=== PATIENT | male | born 1970 | race Caucasian/White ===

== ENCOUNTER 2018-01-31 22:59 | Inpatient (IN) | payer SELFPAY ==
[2018-01-31 23:00] VITALS: BP 86/64; PULSE 84; RESP 27; TEMP 37.1; O2SAT 97; BMI 29.6
--- NOTE | 2018-01-31 23:02 | ED.RN ---
NO OLD EKGS IN MUSE.
--- NOTE | 2018-01-31 23:16 | EKG12_ITS ---
Test Reason : CP Blood Pressure : / mmHG Vent. Rate : 083 BPM Atrial Rate : 083 BPM P-R Int : 134 ms QRS Dur : 080 ms QT Int : 392 ms P-R-T Axes : -11 068 075 degrees QTc Int : 460 ms Normal sinus rhythm Nonspecific ST and T wave abnormality Prolonged QT Abnormal ECG Confirmed by ABELARDO SOMMERS, KACEY ([id number]), clinical editor GALA GOLDBERG ([id number]) on 02/02/2018 2:17:14 PM Referred By: DR HERBERT Confirmed By:KACEY ZHOU MD
--- NOTE | 2018-01-31 23:20 | RAD_ITS ---
STUDY: X-RAY CHEST REASON FOR EXAM: Male, 47 years old. Chest pain TECHNIQUE: Single AP portable view of the chest. COMPARISON: None. FINDINGS: Normal lung volumes. Right lung is clear. Streaky densities in the left lung base consistent with scarring or atelectasis. No effusions. Sternal cerclage wires and vascular clips are present from a prior sternotomy and coronary artery bypass graft procedure (CABG). Normal heart size. Normal mediastinum and dewayne. Normal visualized pulmonary arteries. Normal visualized aortic arch and descending thoracic aorta. Normal visualized thoracic spine. Normal visualized ribs, clavicles, and shoulders. There is no demonstrated abnormality of the visualized soft tissue structures of the upper abdomen. RAD/Chest 1 View (Portable) IMPRESSION: Streaky densities in the left lung base consistent with scarring or atelectasis. Electronically Signed: Primitivo Thurman MD at 23:38 EDT , Service support ,
[2018-01-31 23:25] LABS: Absolute Lymphocyte Count 1.09 X10^3/ul (0.83-4.51); Absolute Neutrophil Count 11.4 X10^3/uL (2.0-7.7); Basophil# 0.03 X10^3/uL; Basophil% 0.2 % (0-1); Eosinophil# 0.04 X10^3/uL; Eosinophils% 0.3 % (0-5); Hematocrit 30.9 % (40-54); Hemoglobin 10.6 g/dl (13.0-16.5); Lymphocyte # 1.09 X10^3/ul (4.0); Lymphocyte % 8.4 % (19-41); Mean Corp Hgb Conc 34.3 g/gl (32-36); Mean Corpuscular Volume 84.7 fL (80-94); Mean Platelet Vol. 9.2 fl (6.2-12.0); Monocyte# 0.47 X10^3/uL; Monocyte% 3.6 % (0-10); Neutrophil # 11.39 X10^3/uL (2.7-7.7); Neutrophil % 87.3 % (47-70); POSITIVE COUNT NO; POSITIVE DIFFERENTIAL NO; POSITIVE MORPHOLOGY NO; Platelet Count 484 K/mm3 (150-450); RBC Distribution Width CV 13.2 % (11.6-14.6); RBC Distribution Width SD 40.6 fl (35.1-43.9); Red Blood Count 3.65 M/mm3 (4.6-6.2)
[2018-01-31 23:36] LABS: International Normalized Ratio 1.2; Prothrombin Time (Protime)PT. 15.2 SECONDS (11.7-14.9)
[2018-01-31 23:37] LABS: Partial Thromboplast Time 36.4 Seconds (24.1-36.2)
[2018-01-31] MEDS: Aspirin 81 MG TAB.CHEW 243 MG PO (23:38)
[2018-01-31] MEDS: 0.9% Normal Saline 1,000 ML 999 ML IV (23:38)
--- NOTE | 2018-01-31 23:40 | ED.RN ---
PT DECLINED FENTANYL AT THIS TIME
--- NOTE | 2018-01-31 23:50 | ED.VISSUMM ---
- ER Visit Summary Date of Service: 01/31/18 Chief Complaint: Chest pain History of Present Illness: The patient is a 47 M sudden substernal chest tightness after getting out of the shower around 9 PM. States he was laying down when this happened. He had left arm numbness and passed out. Pain was 10 initially. Currently 2 out of 10. No previous similar symptoms. No tobacco history. No family history of MIs at a young age. Denies history of hypertension, hypercholesterol, diabetes. Family states he was admitted at [facility] 2 weeks ago for sepsis. He finished his medicines 9 days ago. Said no clear source. Initial reported that he had a narrow artery from his chest down to his abdomen. Currently pain is a 2 out of 10. He has history aortic valve repair 3 years ago at [facility]. States the cath was then at that time. He is on metoprolol, however denies any A. fib or hypertension history. I was able to obtain records through [facility], noted he was admitted for 4 days for septic shock and concerns for secondary viral illness. He was on Tamiflu on discharge. PE study was performed on 421, aorta was normal. 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 Reported no significant calcification of the coronary arteries. Physical Examination: General: Alert and oriented ?3, no acute distress HEENT: Normocephalic, atraumatic. Moist mucosa membranes Neck: supple, nontender. Cardiovascular: Regular rate and rhythm, no murmurs Respiratory: Normal breath sounds, symmetric, no distress Abdomen: Soft, nontender, nondistended Extremities: Nontender, no edema, pulses intact ?4 Neuro: no focal neurological deficits. Skin: Mild sweats Test Results: EKG: Sinus rate of 83, on no ST or changes. T-wave inversions on V5 and V6. Troponin 0 0.6. Hemoglobin 10.6. Platelets 484. Creatinine clearance 80. Chest x-ray left lower lobe atelectasis. Emergency Department Course and Treatment: Patient initial clammy. EKG with T-wave inversion V5 V6. No elevations or depressions. Cardiac workup initiated. Given a liter fluids due to his hypotension. Responded. Minimal chest discomfort on my evaluation he declined fentanyl. Troponin returned at 0.6. Initial order for heparin due to NSTEMI. 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 I spoke with the transfer line, the states their beds are full from a cardiac standpoint he would be on the waiting list. Family decided that they would like to stay here. I spoke with Dr. Mcgee, updated he states he will cath in the morning. He would like Plavix 300 mg given. He wanted to heparin stopped, check with nursing stated it was not given. Heart score is a 6. Spoke with hospitalist, Dr. Singh for admission to PCU. Treatment Plan: [] Disposition: Admission Impression: NSTEMI This note was generated with QCoefficient dictation software. It may contain incorrect words, spelling, and punctuation that were not noted in review of the chart prior to signing ED Disposition - Plan for ED Patient: Disposition: Acute Care Hospital [facility] Chief Complaint: Chest Pain Diagnosis: NSTEMI (non-ST elevated myocardial infarction) Referrals: Roe Pennington [Primary Care Provider] -
[2018-01-31 23:51] VITALS: BP 95/71; PULSE 86; RESP 24; O2SAT 100
--- NOTE | 2018-01-31 23:54 | ED.DCSUM_ITS ---
- ER Visit Summary Date of Service: 01/31/18 Chief Complaint: Chest pain History of Present Illness: The patient is a 47 M sudden substernal chest tightness after getting out of the shower around 9 PM. States he was laying down when this happened. He had left arm numbness and passed out. Pain was 10 initially. Currently 2 out of 10. No previous similar symptoms. No tobacco history. No family history of MIs at a young age. Denies history of hypertension, hypercholesterol, diabetes. Family states he was admitted at [facility] 2 weeks ago for sepsis. He finished his medicines 9 days ago. Said no clear source. Initial reported that he had a narrow artery from his chest down to his abdomen. Currently pain is a 2 out of 10. He has history aortic valve repair 3 years ago at [facility]. States the cath was then at that time. He is on metoprolol, however denies any A. fib or hypertension history. I was able to obtain records through [facility], noted he was admitted for 4 days for septic shock and concerns for secondary viral illness. He was on Tamiflu on discharge. PE study was performed on 421, aorta was normal. 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 Reported no significant calcification of the coronary arteries. Physical Examination: General: Alert and oriented ?3, no acute distress HEENT: Normocephalic, atraumatic. Moist mucosa membranes Neck: supple, nontender. Cardiovascular: Regular rate and rhythm, no murmurs Respiratory: Normal breath sounds, symmetric, no distress Abdomen: Soft, nontender, nondistended Extremities: Nontender, no edema, pulses intact ?4 Neuro: no focal neurological deficits. Skin: Mild sweats Test Results: EKG: Sinus rate of 83, on no ST or changes. T-wave inversions on V5 and V6. Troponin 0 0.6. Hemoglobin 10.6. Platelets 484. Creatinine clearance 80. Chest x-ray left lower lobe atelectasis. Emergency Department Course and Treatment: Patient initial clammy. EKG with T- wave inversion V5 V6. No elevations or depressions. Cardiac workup initiated. Given a liter fluids due to his hypotension. Responded. Minimal chest discomfort on my evaluation he declined fentanyl. Troponin returned at 0.6. Initial order for heparin due to NSTEMI. 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 I spoke with the transfer line, the states their beds are full from a cardiac standpoint he would be on the waiting list. Family decided that they would like to stay here. I spoke with Dr. Mcgee, updated he states he will cath in the morning. He would like Plavix 300 mg given. He wanted to heparin stopped, check with nursing stated it was not given. Heart score is a 6. Spoke with hospitalist, Dr. Singh for admission to PCU. Treatment Plan: [] Disposition: Admission Impression: NSTEMI This note was generated with AppSame dictation software. It may contain incorrect words, spelling, and punctuation that were not noted in review of the chart prior to signing ED Disposition - Plan for ED Patient: Disposition: Acute Care Hospital [facility] Chief Complaint: Chest Pain Diagnosis: NSTEMI (non-ST elevated myocardial infarction) Referrals: Roe Pennington [Primary Care Provider] -
[2018-01-31 23:58] LABS: Anion Gap 8 (5-15); BUN 20 mg/dL (7-18); BUN/Creat Ratio 16.8 RATIO (10-20); Calcium,Total 8.1 mg/dL (8.5-10.1); Chloride 99 mmol/L (98-107); Creatinine, Serum 1.19 mg/dL (0.70-1.30); EST Glomerular Filtration Rate 69 mL/min (>60); Est Glom Filt Rate - Afr Amer 84 mL/min (>60); Estimated Creatinine Clearance 80.85 ml/min; Glucose 131 mg/dL (74-106); Potassium 3.6 mmol/L (3.5-5.1); Sodium Level 133 mmol/L (136-145)
[2018-02-01] VITALS (19 sets, daily range): BP systolic 80–119; BP diastolic 55–91; PULSE 66–97; RESP 14–28; TEMP 36.9; O2SAT 93–98; BMI 29.0
--- NOTE | 2018-02-01 | ED.RN ---
DR HERBERT NOTIFIED OF TROPONIN RESULTS
[2018-02-01] MEDS: 0.9% Normal Saline 1,000 ML 150 ML IV ×2 (00:25→07:55)
--- NOTE | 2018-02-01 01:15 | PCM.HP.STD ---
Problem List (1) NSTEMI (non-ST elevated myocardial infarction) Status: Acute History of Present Illness Date of Admission: 02/01/18 Chief Complaint: chest pain The patient is a 47 year old male patient with a significant past medical history of aortic valve replacement three years ago and recovering from a hospitalization 10 days ago fro viral sepsis presents to the ER with acute chest pain. This initially presented while he was taking a shower at approximately 9:00 pm. He passed out in the shower briefly but suffered no injury from falling. He then developed 10/10 substernal chest pain. 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 Past Medical History Allergies No Known Allergies Allergy (Verified 01/31/18 23:09) Home Medications: Ambulatory Orders Medication Instructions Recorded Aspirin [Aspirin, Baby] 81 mg PO DAILY 01/31/18 Metoprolol Tartrate 25 mg PO BID 01/31/18 Smoking Status: Never smoker - *Family History Maternal History Items: No pertinent history Review of Systems Constitutional: Denies: Chills, Fever, Weight Change HEENT: Denies: Head Aches, Sinus Congestion, Sinus Drainage Cardiovascular: Reports: Chest Pain, Chest Pressure, Chest Tightness, Heaviness. Denies: Palpitations Respiratory: Denies: Cough, Shortness of breath at rest, Sputum production Gastrointestinal: Denies: Abdominal Pain, Nausea, Vomiting Genitourinary: Denies: Dysuria Musculoskeletal: Denies: Joint Pain, Joint Tenderness Skin: Denies: Rash, Wounds Neurological: Denies: Numbness, Tingling, Focal weakness Psychiatric: Denies: Anxiety, Depression, Homicidal Ideations, Suicidal Ideations Hematologic/ Lymphatic: Denies: Easy Bruising, Easy Bleeding VTE Information - Inpt Only VTE Present on Admission: No VTE Mechan Device Prophylaxis: None VTE Pharm Prophylaxis ordered?: Yes Patient Problems: Active and Suspected Problems NSTEMI (non-ST elevated myocardial infarction) (Acute) - Physical Exam General: Alert, Oriented x3, Cooperative HEENT: Atraumatic, Normocephalic Neck: Supple Lungs: Clear to auscultation, Normal air movement, No rhonchi, No wheeze Cardiovascular: Regular rate, Murmur - 4/6 holosystolic Abdomen: Bowel Sounds Present, Soft, Non Tender Extremities: Capillary Refill Less than 3 Seconds, Edema - trace lower ext edema Skin: No rashes, No breakdown Musculoskeletal: No Tenderness to Palpation of Joints or Extremities Neurological: Neuro grossly intact Psych/Mental Status: Normal Affect, Appropriate Vital Signs Temp Pulse Resp BP Pulse Ox 98.7 F 90 28 H 94/72 97 01/31/18 23:00 02/01/18 00:15 02/01/18 00:15 02/01/18 00:15 02/01/18 00:15 Oxygen Flow Rate (L/min) 2 Oxygen Delivery Method Nasal Cannula Weight: 212 lb 8.41 oz Body Mass Index (BMI) 29.6 Laboratory Tests Past 24 Hrs 01/31/18 01/31/18 01/31/18 23:12 23:12 23:12 WBC 13.0 H RBC 3.65 L Hgb 10.6 L Hct 30.9 L MCV 84.7 MCH 29.0 MCHC 34.3 RDW 13.2 RDW Differential 40.6 Plt Count 484 H MPV 9.2 Immature Gran % (Auto) 0.200 Neut % (Auto) 87.3 H Lymph % (Auto) 8.4 L [place] % (Auto) 3.6 Eos % (Auto) 0.3 Baso % (Auto) 0.2 Absolute Neuts (auto) 11.4 H Absolute Lymphs (auto) 1.09 Total Counted Not Reportable PT 15.2 H INR 1.2 APTT 36.4 H Sodium 133 L Potassium 3.6 Chloride 99 Carbon Dioxide 26.0 Anion Gap 8 BUN 20 H Creatinine 1.19 Estim Creat Clear Calc 80.85 Est GFR (MDRD) Af Amer 84 Est GFR (MDRD) Non-Af 69 BUN/Creatinine Ratio 16.8 Glucose 131 H Calcium 8.1 L Troponin I 0.60 H* Assessment/Plan Active and Suspected Problems NSTEMI (non-ST elevated myocardial infarction) (Acute) Plan - admit to PCU - consult Dr Mcgee - NPO pending heart cath in am - consider echo - cycle cardiac enzymes - morphine, oxygen, nitro and aspirin per protocol Code Visit Inpatient E&M: 80306 Init Hosp L3
[2018-02-01] MEDS: Clopidogrel Bisulfate 300 MG Tablet PO (01:17)
[2018-02-01 04:23] LABS: M R Staph aureus DNA By PCR Negative (Negative); Probe Check PASS; Specimen Processing Control PASS
[2018-02-01] MEDS: 0.9% NaCl Peripheral Flush Adult/Peds IV (05:53)
--- NOTE | 2018-02-01 05:55 | ECHOD_ITS ---
Reason For Study: Chest pain Procedure This was a 2D Doppler, Color Flow transthoracic echocardiogram. Exam performed portable in ICU/CCU. Left Ventricle Normal LV size. Moderate concentric left ventricular hypertrophy. Left ventricular systolic function is normal. The estimated ejection fraction is 60 %. Transmitral diastolic flow velocities suggest mild (stage 1) diastolic dysfunction (reversed pattern). No regional wall motion abnormalities noted. Right Ventricle Normal RV size. Normal systolic function. Atria Normal left atrium. Normal right atrium. Mitral Valve Normal mitral valve. Tricuspid Valve Normal tricuspid valve. 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 Peak aortic valve gradient 139 mmHg. Mean aortic valve gradient 91 mmHg. Severe aortic stenosis. Bioprosthetic aortic valve. Pulmonic Valve Normal pulmonic valve. Great Vessels Normal aortic root. The pulmonary artery is normal size. Normal inferior vena cava. Pericardium/Pleural No pericardial effusion. MMode/2D Measurements & Calculations LVIDd: 3.8 cm IVSd: 1.4 cm LVOT diam: 2.0 cm LVIDs: 1.9 cm LVPWd: 1.6 cm LVOT area: 3.2 cm2 RVDd: 3.5 cm FS: 48.7 % Ao root diam: 3.3 cm LAV(MOD-bp): 62.5 ml LA A4 area: 19.6 cm2 LA dimension: 4.9 cm LAV(MOD-bp) Indexed: 29.2 ml/m2 LAV(MOD-sp2): 70.8 ml LAV(MOD-sp4): 53.4 ml RA A4 area: 15.8 cm2 Doppler Measurements & Calculations MV E max siddhartha: 99.3 cm/sec Lat Peak E' Siddhartha: 5.1 cm/sec Med Peak E' Siddhartha: 5.0 cm/sec MV A max siddhartha: 122.2 cm/sec E/E' lat: 19.4 E/E' med: 19.7 MV E/A: 0.81 Ao V2 max: 590.6 cm/sec LV V1 max: 100.1 cm/sec SV(LVOT): 77.9 ml Ao max P.6 mmHg LV V1 max P.0 mmHg Ao V2 mean: 457.5 cm/sec LV V1 mean P.1 mmHg Ao mean P.2 mmHg LV V1 mean: 68.6 cm/sec Ao V2 VTI: 147.9 cm LV V1 VTI: 24.5 cm KASIA(I,D): 0.53 cm2 KASIA(V,D): 0.54 cm2 PA V2 max: 125.2 cm/sec TR max siddhartha: 280.2 cm/sec TR max P.4 mmHg Interpretation Summary Normal LV size. Moderate concentric left ventricular hypertrophy. Left ventricular systolic function is normal. The estimated ejection fraction is 60 %. Bioprosthetic aortic valve. Severe aortic stenosis. Aortic valve vegetation(s)/mass of the right coronary cusp. Ordering Physician: Ildefonso Richard Referring Physician: Roe Pennington Performed By: Ning Pleitez RDCS
[2018-02-01 06:05] LABS: Hematocrit 28.6 % (40-54); Hemoglobin 9.8 g/dl (13.0-16.5); Mean Corp Hgb Conc 34.3 g/gl (32-36); Mean Corpuscular Hgb 29.5 pg (27.0-32.0); Mean Corpuscular Volume 86.1 fL (80-94); Mean Platelet Vol. 9.3 fl (6.2-12.0); Platelet Count 483 K/mm3 (150-450); RBC Distribution Width CV 12.9 % (11.6-14.6); RBC Distribution Width SD 39.5 fl (35.1-43.9); Red Blood Count 3.32 M/mm3 (4.6-6.2)
[2018-02-01 06:07] LABS: Scan Indicated on CBC? Y/N NO
[2018-02-01 06:15] LABS: Anion Gap 6 (5-15); BUN 17 mg/dL (7-18); BUN/Creat Ratio 18.9 RATIO (10-20); Calcium,Total 7.9 mg/dL (8.5-10.1); Chloride 107 mmol/L (98-107); EST Glomerular Filtration Rate 96 mL/min (>60); Est Glom Filt Rate - Afr Amer 116 mL/min (>60); Estimated Creatinine Clearance 106.91 ml/min; Glucose 121 mg/dL (74-106); Sodium Level 140 mmol/L (136-145)
--- NOTE | 2018-02-01 07:02 | PCM.CONS.C ---
Reason for Consult Date of Consultation: 02/01/18 Reason for Consultation: Chest pain. History of Present Illness: The patient is a 47 year old M with a previous history of bovine aortic valve replacement at [facility] approximately 3 years ago. Prior to this he apparently had a cardiac catheterization which demonstrated no obstructive coronary disease. He had been doing well until approximately 2-1/2 weeks ago when he got sick with the flu and apparently was admitted to pulmonary in hospital with a diagnosis of septic shock secondary to a viral inflammatory process. He was admitted to the hospital and as per his discharge instructions he was discharged on Tamiflu as well as beta-alison. He did not have any significant elevation of his cardiac enzymes at that time. Yesterday his found him briefly unresponsive on the floor and then he started complaining of chest discomfort described as a heaviness with some radiation towards his left arm. The EMS squad was called and they brought him to was the hospital. Initially he wanted to go back to [facility] but there were no beds there and so he was admitted here I was called from the emergency room. There were no acute EKG changes as he was being transported or from the emergency room. His cardiac enzymes however were noted to be mildly abnormal and he was mildly hypotensive. He was treated with intravenous fluids and we started him on Plavix. He was admitted to the intensive care unit. This morning he appears to be doing better with minimal chest discomfort. At this time his heart rate is in the 70s and his blood pressure is 80/50 with intravenous fluids going at 150 cc an hour. He did not have any prior dizziness or diaphoresis. He did have a CAT scan performed at [facility] within the last 2 weeks which demonstrated no evidence of aortic dissection, no pericardial effusion and no pulmonary embolism. There was no calcification of his coronary arteries noted as well. [] Past Medical History Allergies/Adverse Reactions: Allergies No Known Allergies Allergy (Verified 01/31/18 23:09) Home Medications: Ambulatory Orders Medication Instructions Recorded Aspirin [Aspirin, Baby] 81 mg PO DAILY 01/31/18 Metoprolol Tartrate 25 mg PO BID 01/31/18 Surgical History: - - Aortic valve surgery with aortic valve replacement - *Family History Maternal History Items: No pertinent history Smoking Status: Never smoker Alcohol: None Drugs: None Review of Systems - Review of Systems General: Reports: Fatigue, Malaise. Denies: Fever, Night Sweats Cardiovascular: Reports: Chest Discomfort, Chest Discomfort at Rest. Denies: Shortness of Breath, Orthopnea, PND, Peripheral Edema, Palpitations, Lightheadedness, Dizziness, Near Syncope, Syncope Respiratory: Denies: Cough, Sputum Production, Hemoptysis Gastrointestinal: Denies: Hematemesis, Hematochezia, Melena Genitourinary: Denies: Dysuria, Hematuria Skin: Denies: Rash Neurological: Reports: Dizziness Subjectve: Pleasant gentleman in no apparent distress. Objective: Vital Signs Temp Pulse Resp BP Pulse Ox 98.5 F 70 21 H 80/56 L 94 02/01/18 03:00 02/01/18 06:00 02/01/18 06:00 02/01/18 06:00 02/01/18 06:35 Oxygen Flow Rate (L/min) 2 Oxygen Delivery Method Room Air Weight: 207 lb 14.334 oz Body Mass Index (BMI) 29.0 Intake and Output for Last 24 Hours 01/30/18 01/31/18 02/01/18 23:59 23:59 23:59 Intake Total 603 / 603 Output Total 1200 / 1200 Balance -597 / -597 General: Awake, Alert, Oriented x 3 HEENT: PERRL, EOMI, Sclera Non Icteric Neck: Supple, Good ROM, No Lymph Node Enlargement Lungs: Clear to auscultation Cardiovascular: Regular Rhythm, Normal S1, Normal S2, No Rubs, No Gallops Murmur Murmur: Grade 3/6, Early Systolic, LLSB Vascular: No Carotid Bruits, Normal Femoral Pulses, Normal Radial Pulses, Normal Dorsalis Pedal Pulse, Normal Posterior Tibial Pulses Abdomen: Bowel Sounds Present, Soft, Non Tender, No HSM, No Organomegaly Extremities: No Cyanosis, No Clubbing, No edema Neurological: No Focal Motor or Sensory Deficit 02/01/18 02:35: Troponin I 1.38 H* 02/01/18 05:50: WBC 9.0, RBC 3.32 L, Hgb 9.8 L, Hct 28.6 L, MCV 86.1, MCH 29.5, MCHC 34.3, RDW 12.9, RDW Differential 39.5, Plt Count 483 H, MPV 9.3 02/01/18 05:50: Sodium 140, Potassium 4.0, Chloride 107, Carbon Dioxide 27.0, Anion Gap 6, BUN 17, Creatinine 0.90, Est GFR (MDRD) Af Amer 116, Est GFR (MDRD) Non-Af 96, BUN/Creatinine Ratio 18.9, Glucose 121 H, Calcium 7.9 L 02/01/18 05:50: Troponin I 0.87 H* Rhythm: EKG: Normal sinus rhythm with nonspecific ST-T wave changes ECHO: Pending Assessment/Plan 1. Chest discomfort with a non-ST elevation myocardial infarction. The above appears to be rather unusual in this 47-year-old man who apparently had insignificant coronary artery disease 3 years ago. I will get the cath report to confirm the above. However it to be prudent to obtain an echocardiogram to exclude any evidence of myocardial damage such as myocarditis which may be causing the troponin elevation. If his ejection fraction is normal and his valvular function is normal then I may recommend a cardiac catheterization to exclude obstructive coronary disease. I have explained the above to him as well as his and they understand and agree to proceed. 2. Valvular heart disease. Patient is status post bovine aortic valve replacement. Due to his recent illness I would recommend that we obtain an echocardiogram to exclude any valvular vegetation or abnormality. Depending on the findings of the above further recommendations will then be made. 3. Hypotension. The etiology of his hypotension is not entirely clear to me at this particular time. He will continue with intravenous fluids aggressively and his echocardiogram may give us some guidance as to the etiology. Thank you for allowing me to participate in the care of your patient. Please don't hesitate to call if any issues arise
[2018-02-01] MEDS: CHLORHEXIDINE GLUC 2% CLOTH 1 EACH TOWELETTE TOPICAL (07:54)
--- NOTE | 2018-02-01 08:12 | PCM.HOSP.N ---
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 After that, he developed chest pain; more like heaviness with left arm radiation. The patient was transferred to ER by squad. EKG showed normal sinus rhythm with nonspecific ST-T changes. Prior to that, he was admitted in [facility] about 2-3 weeks ago with diagnosis of septic shock most probably from viral infection was discharged on Tamiflu. At that time, he does not remember the detail of the chest pain or other chest symptoms mainly because he was in shock. Patient was found to have elevated troponin; 0.61.[address] He had [address] scan of chest at [facility] which did not show evidence of aortic dissection, pericardial effusion or pulmonary embolism. Currently, patient is chest pain-free. no obvious shortness of breath. Patient having echo. Scheduled for cardiac cath today. Laboratory Results 01/31/18 23:12: WBC 13.0 H, RBC 3.65 L, Hgb 10.6 L, Hct 30.9 L, MCV 84.7, MCH 29.0, MCHC 34.3, RDW 13.2, RDW Differential 40.6, Plt Count 484 H, MPV 9.2, Immature Gran % (Auto) 0.200, Neut % (Auto) 87.3 H, Lymph % (Auto) 8.4 L, [place] % (Auto) 3.6, Eos % (Auto) 0.3, Baso % (Auto) 0.2, Absolute Neuts (auto) 11.4 H, Absolute Lymphs (auto) 1.09, Total Counted Not Reportable 01/31/18 23:12: Sodium 133 L, Potassium 3.6, Chloride 99, Carbon Dioxide 26.0, Anion Gap 8, BUN 20 H, Creatinine 1.19, Estim Creat Clear Calc 80.85, Est GFR (MDRD) Af Amer 84, Est GFR (MDRD) Non-Af 69, BUN/Creatinine Ratio 16.8, Glucose 131 H, Calcium 8.1 L, Troponin I 0.60 H* 01/31/18 23:12: PT 15.2 H, INR 1.2, APTT 36.4 H 02/01/18 02:15: MRSA (PCR) Negative 02/01/18 02:35: Troponin I 1.38 H* 02/01/18 05:50: WBC 9.0, RBC 3.32 L, Hgb 9.8 L, Hct 28.6 L, MCV 86.1, MCH 29.5, MCHC 34.3, RDW 12.9, RDW Differential 39.5, Plt Count 483 H, MPV 9.3 02/01/18 05:50: Sodium 140, Potassium 4.0, Chloride 107, Carbon Dioxide 27.0, Anion Gap 6, BUN 17, Creatinine 0.90, Estim Creat Clear Calc 106.91, Est GFR (MDRD) Af Amer 116, Est GFR (MDRD) Non-Af 96, BUN/Creatinine Ratio 18.9, Glucose 121 H, Calcium 7.9 L 02/01/18 05:50: Troponin I 0.87 H* Assessment and plan 1. Chest pain with non-STEMI; possible of viral myocarditis in the appropriate clinical circumstances. 2. Aortic stenosis status post bovine AVR.: Patient just had echo. Will review the echo report. 3. hypotension, probably cardiogenic patient is awake and alert. Heart rate is normal. Does not show obvious signs of shock. On aggressive IV fluid normal saline volume resuscitation. Monitor I&O's.
--- NOTE | 2018-02-01 08:15 | NURSING ---
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
--- NOTE | 2018-02-01 08:21 | ECHOTEE_ITS ---
Reason For Study: EMBOLI Medication Cetacaine Topical [place] given X3 orally. Left Ventricle Normal LV size. Left ventricular systolic function is normal. The estimated ejection fraction is 60 %. No regional wall motion abnormalities noted. Right Ventricle Normal RV size. Normal systolic function. Atria Normal atrial septum. Normal left atrium. Mitral Valve Normal mitral valve. Mild (1+) eccentric mitral valve insufficiency. Tricuspid Valve Normal tricuspid valve. Aortic Valve Bioprosthetic aortic valve. Vegetation(s)/mass of the prosthetic aortic valve. Pulmonic Valve Normal pulmonic valve. Vessels Normal aortic root. Normal arch. The pulmonary artery is normal size. Pericardium No pericardial effusion. Interpretation Summary Normal LV size. Left ventricular systolic function is normal. The estimated ejection fraction is 60 %. Bioprosthetic aortic valve. Vegetation(s)/mass of the prosthetic aortic valve. Ordering Physician: Alex Mcgee Referring Physician: Alex Mcgee MD Performed By: Yamileth Smith, RDCS, RVT
--- NOTE | 2018-02-01 08:21 | CCHN_ITS ---
Hospitalist Note The patient was admitted parts remover today after he had brief episode of unconsciousness and unresponsiveness in bathroom and he fell down but no significant injury. After that, he developed chest pain; more like heaviness with left arm radiation. The patient was transferred to ER by squad. EKG showed normal sinus rhythm with nonspecific ST-T changes. Prior to that, he was admitted in [facility] about 2-3 weeks ago with diagnosis of septic shock most probably from viral infection was discharged on Tamiflu. At that time, he does not remember the detail of the chest pain or other chest symptoms mainly because he was in shock. Patient was found to have elevated troponin; 0.61.38 [address] He had CT scan of chest at [facility] which did not show evidence of aortic dissection, pericardial effusion or pulmonary embolism. Currently, patient is chest pain-free. no obvious shortness of breath. Patient having echo. Scheduled for cardiac cath today. Laboratory Results 01/31/18 23:12: WBC 13.0 H, RBC 3.65 L, Hgb 10.6 L, Hct 30.9 L, MCV 84.7, MCH 29.0, MCHC 34.3, RDW 13.2, RDW Differential 40.6, Plt Count 484 H, MPV 9.2, Immature Gran % (Auto) 0.200, Neut % (Auto) 87.3 H, Lymph % (Auto) 8.4 L, [place] % (Auto) 3.6, Eos % (Auto) 0.3, Baso % (Auto) 0.2, Absolute Neuts (auto) 11.4 H , Absolute Lymphs (auto) 1.09, Total Counted Not Reportable 01/31/18 23:12: Sodium 133 L, Potassium 3.6, Chloride 99, Carbon Dioxide 26.0, Anion Gap 8, BUN 20 H, Creatinine 1.19, Estim Creat Clear Calc 80.85, Est GFR ( MDRD) Af Amer 84, Est GFR (MDRD) Non-Af 69, BUN/Creatinine Ratio 16.8, Glucose 131 H, Calcium 8.1 L, Troponin I 0.60 H* 01/31/18 23:12: PT 15.2 H, INR 1.2, APTT 36.4 H 02/01/18 02:15: MRSA (PCR) Negative 02/01/18 02:35: Troponin I 1.38 H* 02/01/18 05:50: WBC 9.0, RBC 3.32 L, Hgb 9.8 L, Hct 28.6 L, MCV 86.1, MCH 29.5, MCHC 34.3, RDW 12.9, RDW Differential 39.5, Plt Count 483 H, MPV 9.3 02/01/18 05:50: Sodium 140, Potassium 4.0, Chloride 107, Carbon Dioxide 27.0, Anion Gap 6, BUN 17, Creatinine 0.90, Estim Creat Clear Calc 106.91, Est GFR ( MDRD) Af Amer 116, Est GFR (MDRD) Non-Af 96, BUN/Creatinine Ratio 18.9, Glucose 121 H, Calcium 7.9 L 02/01/18 05:50: Troponin I 0.87 H* Assessment and plan 1. Chest pain with non-STEMI; possible of viral myocarditis in the appropriate clinical circumstances. 2. Aortic stenosis status post bovine AVR.: Patient just had echo. Will review the echo report. 3. hypotension, probably cardiogenic patient is awake and alert. Heart rate is normal. Does not show obvious signs of shock. On aggressive IV fluid normal saline volume resuscitation. Monitor I&O's.
--- NOTE | 2018-02-01 10:12 | NURSING ---
Report given to RN at [facility].
--- NOTE | 2018-02-01 10:14 | NURSING ---
Report given to [facility] staff. Pt transported out of building at this time.
--- NOTE | 2018-02-01 14:55 | PCM.DC.SUM ---
Discharge Date and Diagnosis Date of Admission: 02/01/18 Date of Discharge: 02/01/18 - Primary Discharge Diagnosis 1. Chest pain with elevated troponin, NSTEMI;exact etiology unclear, probably from aortic valve vegetation 2. Aortic stenosis status post bovine AVR with infected bioprosthetic valve with vegetation with severe : 3. hypotension, probably cardiogenic: Resolved The patient was transferred for aortic valve replacement Hospital Course and Treatment Imaging Results: 02/01/18 08:21 Echo Transesophageal (VIV) [ECHO] Routine Summary of Care Provided: [] The patient is a 47-year-old gentleman with history of bovine aortic valve replacement at [facility] about 3 years ago with no obvious coronary artery disease on prior cardiac cath was admitted with brief episode of unconsciousness and unresponsiveness in bathroom and he fell down but no significant injury. After that, he developed chest pain; more like heaviness with left arm radiation. The patient was transferred to ER by squad. EKG showed normal sinus rhythm with nonspecific ST-T changes. Patient had hypotension, blood pressure 80/50 with good response to IV fluid. Heart rates in 70s. Prior to that, he was admitted in [facility] about 2-3 weeks ago with diagnosis of septic shock most probably from viral infection was discharged on Tamiflu. At that time, he does not remember the detail of the chest pain or other chest symptoms mainly because he was in shock. Patient was found to have elevated troponin; 0.61. 0.38 and 0.87. He had CT scan of chest at [facility] which did not show evidence of aortic dissection, pericardial effusion or pulmonary embolism. The patient was started on IV heparin drip after heparin bolus along with aspirin and Plavix as per ACS protocol. Troponins probably from aortic valve vegetation The patient was further admitted in ICU. Woodworking Machine Operator was consulted. Patient had TTE and VIV. Initially TTE shows aortic wall vegetation of right coronary cusp, mean aortic valve gradient 91 mmHg suggestive of severe aortic stenosis. EF 60% stage I diastolic dysfunction. No regional wall motion abnormalities. Right and left atria. Then VIV was done which reported as vegetation/mass in the prosthetic aortic valve. EF 60%. Mild 1+ eccentric MR. Currently, patient is chest pain-free. no obvious shortness of breath. Woodworking Machine Operator, Dr. craig informed me about the echo finding as mentioned above. Woodworking Machine Operator, Dr. craig facilitated the transfer. patient was transferred to [facility]. Home Medications: Medications to take at Discharge Aspirin [Aspirin, Baby] 81 mg PO DAILY 01/31/18 Metoprolol Tartrate 25 mg PO BID 01/31/18 Primary Care Physician: Roe Pennington [Primary Care Provider] - Medical Necessity - Tobacco Use Smoking Status: Never smoker Meaningful Use Info Meaningful Use Diagnoses (Choose all that apply): None applicable Code Visit OBSV E&M: 80758 Observ/hosp same date L3
== END 2018-02-01 10:15 | disposition short-term general hospital (02) | DRG 280 ==
LOC: ED 02-01 01:31 → ICU 02-01 01:46
PROVIDERS: Admitting Provider Family Medicine; Emergency Provider Emergency Medicine; Family Provider Family Medicine; PCP Family Medicine; Visit Provider Internal Medicine
DX: I21.4 Non-ST elevation (NSTEMI) myocardial infarction (principal); I33.0 Acute and subacute infective endocarditis; I95.9 Hypotension, unspecified; Z95.3 Presence of xenogenic heart valve; I25.10 Atherosclerotic heart disease of native coronary artery without angina pectoris
CPT/HCPCS: 71045; 80048; 84484; 85025; 85027; 85610; 85730; 87040; 87641; 93005; 93306; 93312; 93320; 93325; 99285; J7030; A4216